=== PATIENT | female | born 2000 | race Hispanic/Latino ===

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

== ENCOUNTER 2020-02-16 05:42 | Inpatient (IN) | payer MEDICAID ==
[~2020-02-16] VITALS: Ht 157.5 cm; Wt 63.5 kg
[2020-02-16] MEDS ORDERED: LACTATED RINGERS 1000ML 1,000 ML IV PRN (06:08)
[2020-02-16] MEDS ORDERED: OXYTOCIN 10 USP UNITS/ML 20 UNIT in LACTATED RINGERS 1000ML 1,000 ML IV SCH (06:15)
[2020-02-16 06:37] LABS: AMPHET/METH SCREEN,URINE NEGATIVE (NEGATIVE); BARBITURATE SCREEN, URINE NEGATIVE (NEGATIVE); BENZODIAZEPINES SCREEN,URINE NEGATIVE (NEGATIVE); CANNABINOID SCREEN,URINE NEGATIVE (NEGATIVE); COCAINE SCREEN,URINE NEGATIVE (NEGATIVE); OPIATE SCREEN,URINE NEGATIVE (NEGATIVE); PHENCYCLIDINE SCREEN,URINE NEGATIVE (NEGATIVE)
[2020-02-16 06:45] LABS: HEMATOCRIT 31.6 % (36-48); MEAN CORPUSCULAR HGB CONC 30.7 g/dL (32.0-36.0); MEAN CORPUSCULAR VOLUME 81.4 fL (80-100); PLATELET COUNT (AUTO) 400 K/uL (130-400); RED BLOOD CELL COUNT(AUTO) 3.88 MIL/uL (4.00-5.50); RED CELL DISTRIBUTION WIDTH 15.9 % (11.0-15.5); WHITE BLOOD COUNT (AUTO) 14.6 K/uL (4.8-10.8)
[2020-02-16 06:46] LABS: APPEARANCE,URINE Clear (CLEAR); BILIRUBIN,URINE Negative (NEGATIVE); COLOR,URINE Yellow (YELLOW); GLUCOSE, URINE (UA) Negative (NEGATIVE); KETONES,URINE Negative (NEGATIVE); LEUKOCYTE ESTERASE ,URINE Moderate (NEGATIVE); NITRATE,URINE Negative (NEGATIVE); OCCULT BLOOD,URINE Large (NEGATIVE); PH,URINE 6.5 (5.0-8.0); PROTEIN,URINE Negative (NEGATIVE)
[2020-02-16] MEDS ORDERED: OXYTOCIN-LR 20 UNITS/1000 ML 1,000 ML IV SCH ×2 (07:00→13:15)
[2020-02-16 07:01] LABS: BACTERIA,URINE Moderate /HPF (None Seen); MUCUS,URINE Rare LPF (None Seen); RBC,URINE 0-1 /HPF (0-1); SQUAMOUS EPITHELIAL CELL,UR Few /HPF (0-2)
--- NOTE | 2020-02-16 09:19 | NUR ---
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 Pt agreeable to interview with mom present. Pt lives with her mother and step father in their home. All utilities in the home are working, reports mother. Pt is on maternity leave from work and is independent, has Medicaid and food stamp assistance, will apply for WIC at or. Pt reports she has basic items including car seat for NB, JASON KEENAN. Pt has not selected a log washer. FOB is Jairo Keenan (2000) [phone]. FOB and pt are not together but he will have involvement with NB after . Due to CORONAVIRUS, only 1 person allowed with pt and pt selected her mother over FOB. Pt reports hx of arrest at 16 and time in [facility]. Pt states she saw a psychiatrist while there and he told her she had signs and symptoms of depression and anxiety, related to her cutting and hx of ideations. Pt denies any suicide attempts or inpt stays. Pt states after release, she went to [address] and never returned. Pt reports she was a heavy daily THC user since 15 until finding out she was in May. Pt reports she continued to use after confirmation until Jul for nausea and appetite, "but it was a lot less than before". Pt also reports that she was taking street Xanax for about 2 weeks prior to confirmation and only took for 3 days. Pt denies use after Oct. Mother confirmed pt's reporting. Pt was negative at delivery and meconium test will be done after or. Sw educated pt on CPS reporting if meconium is positive. Pt and mother voiced understanding. Pt refused resources offered and stated she does not plan to use after delivery. Pt denies hx of abuse, or domestic violence. Kamla nursery nurse aware of above Addendum: 02/16/20 at 1002 by MJ MATA SS Amended: Links added.
[2020-02-16] MEDS ORDERED: PROMETHAZINE HCL 25 MG/ML 1ML AMPULE IM SCH (10:15)
[2020-02-16] MEDS: MEPERIDINE-PF 25 MG/ML SYG IVP SCH ×2 (10:21→10:48)
[2020-02-16] MEDS ORDERED: LIDOCAINE HCL 2% 20ML ONE (11:56)
[2020-02-16] MEDS ORDERED: ACETAMINOPHEN-CODEINE 300/30MG TAB PO PRN (13:15)
[2020-02-16] MEDS ORDERED: DIPH,PERTUSS(ACELL),TET VAC/PF 0.5 ML VIAL IM PRN (13:15)
[2020-02-16] MEDS ORDERED: WITCH HAZEL 1 PAD TP PRN (13:15)
[2020-02-16] MEDS ORDERED: LANOLIN 30GM OINTMENT TP PRN (13:15)
[2020-02-16] MEDS ORDERED: ACETAMINOPHEN 325 MG TAB PO PRN (13:15)
[2020-02-16] MEDS ORDERED: BENZOCAINE/LANOLIN/ALOE VERA 60 ML AEROSOL TP PRN (13:15)
[2020-02-16] MEDS ORDERED: MEASLES/MUMPS/RUBELLA VACCINE, LIVE 0.5 ML/VIAL SQ PRN (13:15)
[2020-02-16] MEDS: IBUPROFEN 600 MG TABLET PO PRN (14:10)
[2020-02-16] MEDS ORDERED: PREN1TAB80 PO (14:37)
[2020-02-16 14:45] VITALS: BP 125/63
[2020-02-16 16:05] VITALS: BP 124/72
[2020-02-16 19:51] VITALS: BP 118/68
[2020-02-16] MEDS: DOCUSATE SODIUM 100 MG CAP PO SCH (21:05)
[2020-02-16 23:15] VITALS: BP 118/81
[2020-02-17 03:12] VITALS: BP 108/74
[2020-02-17 06:48] LABS: HEMATOCRIT 22.9 % (36-48); MEAN CORPUSCULAR HGB CONC 30.6 g/dL (32.0-36.0); MEAN CORPUSCULAR VOLUME 81.8 fL (80-100); RED BLOOD CELL COUNT(AUTO) 2.8 MIL/uL (4.00-5.50); RED CELL DISTRIBUTION WIDTH 15.9 % (11.0-15.5); WHITE BLOOD COUNT (AUTO) 18.9 K/uL (4.8-10.8)
[2020-02-17 07:27] VITALS: BP 111/75
[2020-02-17] MEDS: IBUPROFEN 600 MG TABLET PO PRN (09:04)
[2020-02-17] MEDS: DOCUSATE SODIUM 100 MG CAP PO SCH (09:04)
[2020-02-17 10:10] LABS: HEPATITIS Bs ANTIGEN SCREEN P Negative (Negative)
[2020-02-17 11:27] VITALS: BP 103/67
--- NOTE | 2020-02-17 14:00 | NUR ---
DISCHARGE PT LEFT UNIT VIA WHEELCHAIR, WITH BABY IN ARMS, ACCOMPANIED BY SIGNIFICANT OTHER. DENIED PAIN AND HAD NO COMPLAINTS. BABY STRAPPED IN CAR SEAT. PT AND BABY TRANSPORTED BY PERSONAL VEHICLE.
== END 2020-02-17 14:00 | disposition home or self-care (01) | DRG 560 ==
LOC: LDH 05:42 → WSH 14:29
PROC: 3E0234Z Introduction of Serum, Toxoid and Vaccine into Muscle, Percutaneous Approach (ICD-10-PCS; principal; 2020-02-16)
PROC: 10D07Z6 Extraction of Products of Conception, Vacuum, Via Natural or Artificial Opening (ICD-10-PCS; 2020-02-16)
PROC: 10907ZC Drainage of Amniotic Fluid, Therapeutic from Products of Conception, Via Natural or Artificial Opening (ICD-10-PCS; 2020-02-16)
PROC: 0W8NXZZ Division of Female Perineum, External Approach (ICD-10-PCS; 2020-02-16)
DX: O69.81X0 Labor and delivery complicated by cord around neck, without compression, not applicable or unspecified (principal); Z37.0 Single live birth; Z23 Encounter for immunization; Z3A.40 40 weeks gestation of pregnancy
CPT/HCPCS: 36415; 80305; 81001; 85027; 86592; 86850; 86900; 86901; 87088; 87340; 90715; A4351; A4606; G0378; J2175; J2550; J2590; J3490; J7120

== ENCOUNTER 2020-02-25 10:59 | Emergency (ER) | payer MEDICAID ==
[~2020-02-25 10:59] MED LIST: PREN1TAB80 PO
[2020-02-25] MEDS ORDERED: CEFTRIAXONE SODIUM 2 GM VIAL ONE (11:47)
[2020-02-25] MEDS ORDERED: SODIUM CHLORIDE 0.9% 100 ML IV ONE (11:48)
[2020-02-25] MEDS ORDERED: ACETAMINOPHEN EXTRA STRENGTH 500 MG TABLET ONE (11:48)
[2020-02-25 11:55] LABS: BASOPHILS % (AUTO) 0.3 % (0.0-5.0); HEMATOCRIT 30.9 % (36-48); LYMPHOCYTES % (AUTO) 11.4 % (21.0-51.0); MEAN CORPUSCULAR HEMOGLOBIN 24.9 pg (27.0-33.0); MEAN CORPUSCULAR HGB CONC 30.7 g/dL (32.0-36.0); MEAN CORPUSCULAR VOLUME 81.1 fL (80-100); MONOCYTES % (AUTO) 4.1 % (3.0-13.0); NEUTROPHILS % (AUTO) 82.7 % (40.0-77.0); PLATELET COUNT (AUTO) 593 K/uL (130-400); RED BLOOD CELL COUNT(AUTO) 3.81 MIL/uL (4.00-5.50); RED CELL DISTRIBUTION WIDTH 16.5 % (11.0-15.5); WHITE BLOOD COUNT (AUTO) 13.8 K/uL (4.8-10.8)
[2020-02-25 12:04] LABS: CREATININE 0.6 mg/dL (0.5-1.5); POTASSIUM 3.7 mmol/L (3.5-5.1)
[2020-02-25 12:09] LABS: ALBUMIN 3.4 g/dL (3.5-5.0); BILIRUBIN,DIRECT 0.1 mg/dL (0.0-0.3); BILIRUBIN,TOTAL 0.3 mg/dL (0.2-1.0); TOTAL PROTEIN, SERUM 8.4 g/dL (6.0-8.3)
[2020-02-25 13:13] LABS: APPEARANCE,URINE Cloudy (CLEAR); BILIRUBIN,URINE Negative (NEGATIVE); COLOR,URINE Yellow (YELLOW); GLUCOSE, URINE (UA) Negative (NEGATIVE); KETONES,URINE 15 mg/dL (NEGATIVE); LEUKOCYTE ESTERASE ,URINE Large (NEGATIVE); NITRATE,URINE Negative (NEGATIVE); OCCULT BLOOD,URINE Large (NEGATIVE); PROTEIN,URINE POS 1+ mg/dL (NEGATIVE)
[2020-02-25 13:29] LABS: BACTERIA,URINE Few /HPF (None Seen); RBC,URINE 26-50 /HPF (0-1); WBC,URINE 51-100 /HPF (0-1)
== END 2020-02-25 13:45 | disposition home or self-care (01) ==
LOC: EDH 10:59
DX: O86.4 Pyrexia of unknown origin following delivery (principal); O91.22 Nonpurulent mastitis associated with the puerperium; Z98.890 Other specified postprocedural states
CPT/HCPCS: 36415; 71045; 80048; 80076; 81001; 82550; 83605; 85025; 87040 ×2; 87088; 96374; 99284; J0696

== ENCOUNTER 2021-04-04 19:39 | Emergency (ER) | payer MEDICAID ==
[~2021-04-04] VITALS: Ht 157.5 cm; Wt 51.7 kg
[2021-04-04 19:46] VITALS: BP 111/76
[2021-04-04 20:07] LABS: BASOPHILS % (AUTO) 0.4 % (0.0-5.0); EOSINOPHILS % (AUTO) 0.2 % (0.0-8.0); HEMATOCRIT 39.9 % (36-48); LYMPHOCYTES % (AUTO) 25.9 % (21.0-51.0); MEAN CORPUSCULAR HEMOGLOBIN 27.2 pg (27.0-33.0); MEAN CORPUSCULAR HGB CONC 32.3 g/dL (32.0-36.0); MEAN CORPUSCULAR VOLUME 84.2 fL (80-100); MONOCYTES % (AUTO) 5.2 % (3.0-13.0); NEUTROPHILS % (AUTO) 67.9 % (40.0-77.0); PLATELET COUNT (AUTO) 412 K/uL (130-400); RED BLOOD CELL COUNT(AUTO) 4.74 MIL/uL (4.00-5.50); RED CELL DISTRIBUTION WIDTH 17.5 % (11.0-15.5); WHITE BLOOD COUNT (AUTO) 13.4 K/uL (4.8-10.8)
[2021-04-04 20:45] LABS: APPEARANCE,URINE Cloudy (CLEAR); BILIRUBIN,URINE Negative (NEGATIVE); COLOR,URINE Dark Yellow (YELLOW); GLUCOSE, URINE (UA) Negative (NEGATIVE); KETONES,URINE >=160 mg/dL (NEGATIVE); LEUKOCYTE ESTERASE ,URINE Moderate (NEGATIVE); NITRATE,URINE Negative (NEGATIVE); OCCULT BLOOD,URINE Negative (NEGATIVE); PROTEIN,URINE Trace mg/dL (NEGATIVE)
[2021-04-04 20:56] LABS: BACTERIA,URINE Few /HPF (None Seen)
[2021-04-04 20:57] LABS: MUCUS,URINE Few LPF (None Seen); SQUAMOUS EPITHELIAL CELL,UR Moderate /HPF (0-2)
[2021-04-04 21:25] VITALS: BP 118/77
[2021-04-04] MEDS ORDERED: CEFTRIAXONE SODIUM 500 MG (DOSE 250-750MG) VIAL IM STA (21:26)
[2021-04-04] MEDS ORDERED: CEFTRIAXONE SODIUM 1 GM IVP STA (21:37)
[2021-04-04] MEDS ORDERED: CEPH500B PO (22:09)
== END 2021-04-04 22:23 | disposition home or self-care (01) ==
LOC: EDH 19:39
DX: O23.41 Unspecified infection of urinary tract in pregnancy, first trimester (principal); O20.0 Threatened abortion; Z3A.01 Less than 8 weeks gestation of pregnancy; Z98.890 Other specified postprocedural states; Z79.899 Other long term (current) drug therapy
CPT/HCPCS: 36415; 76801; 81001; 84702; 84703; 85025; 86850; 86900; 86901; 87088; 96374; 99284; J0696

== ENCOUNTER 2021-10-29 19:47 | Observation (INO) | payer MEDICAID ==
[~2021-10-29] VITALS: Ht 157.5 cm; Wt 58.1 kg
[~2021-10-29 19:47] MED LIST changes: +CEPH500B PO
[2021-10-29 19:50] VITALS: BP 124/89
[2021-10-29 20:48] LABS: APPEARANCE,URINE Clear (CLEAR); BILIRUBIN,URINE Negative (NEGATIVE); COLOR,URINE Yellow (YELLOW); GLUCOSE, URINE (UA) Negative (NEGATIVE); KETONES,URINE Negative (NEGATIVE); LEUKOCYTE ESTERASE ,URINE Trace (NEGATIVE); NITRATE,URINE Negative (NEGATIVE); OCCULT BLOOD,URINE Negative (NEGATIVE); PH,URINE 5.5 (5.0-8.0); PROTEIN,URINE Negative (NEGATIVE)
[2021-10-29 20:53] LABS: BACTERIA,URINE Rare /HPF (None Seen); RBC,URINE 0-1 /HPF (0-1); SQUAMOUS EPITHELIAL CELL,UR Rare /HPF (0-2); WBC,URINE 0-1 /HPF (0-1)
[2021-10-29] MEDS ORDERED: LACTATED RINGERS 1000ML IV SCH (21:30)
== END 2021-10-29 21:55 | disposition home or self-care (01) ==
LOC: EDH 19:47 → LDH 19:48
PROVIDERS: ADMIT Internal Medicine; ATTEND Internal Medicine
DX: O26.893 Other specified pregnancy related conditions, third trimester (principal); R10.32 Left lower quadrant pain; Z3A.37 37 weeks gestation of pregnancy; Z87.891 Personal history of nicotine dependence
CPT/HCPCS: 59025; 81001; 96360; G0378

== ENCOUNTER 2022-04-18 16:54 | Emergency (ER) | payer MEDICAID ==
[~2022-04-18] VITALS: Ht 157.5 cm; Wt 46.7 kg
[~2022-04-18 16:54] MED LIST changes: -CEPH500B PO; +DOCU-116 PO; +FERR-82 PO; +IBUP-2070 PO
[2022-04-18 16:55] VITALS: BP 110/76
[2022-04-18 17:24] LABS: APPEARANCE,URINE CLOUDY (CLEAR); BILIRUBIN,URINE NEGATIVE (NEGATIVE); COLOR,URINE YELLOW (YELLOW); GLUCOSE, URINE (UA) NEGATIVE (NEGATIVE); KETONES,URINE NEGATIVE (NEGATIVE); LEUKOCYTE ESTERASE ,URINE MODERATE (NEGATIVE); NITRATE,URINE NEGATIVE (NEGATIVE); OCCULT BLOOD,URINE LARGE (NEGATIVE); PH,URINE 5.5 (5.0-8.0); PROTEIN,URINE TRACE mg/dL (NEGATIVE); UROBILINOGEN,URINE 0.2 mg/dL (0.2-1.0)
[2022-04-18 17:30] LABS: HCG,QUAL RESULT NEGATIVE (NEGATIVE)
[2022-04-18 17:33] LABS: BACTERIA,URINE Few /HPF (None Seen)
[2022-04-18 17:34] LABS: SQUAMOUS EPITHELIAL CELL,UR Few /HPF (0-2)
[2022-04-18 17:35] LABS: MUCUS,URINE Few LPF (None Seen)
[2022-04-18] MEDS ORDERED: ACET-66 PO (18:25)
[2022-04-18] MEDS ORDERED: CEPH500B PO (18:25)
[2022-04-18] MEDS ORDERED: CEFTRIAXONE 1G VIAL IM ONE (18:30)
[2022-04-18] MEDS ORDERED: LIDOCAINE HCL-MPF 1% 2ML VIAL ONE (18:31)
== END 2022-04-18 18:50 | disposition home or self-care (01) ==
LOC: EDH 16:54
DX: N39.0 Urinary tract infection, site not specified (principal); Z20.822 Contact with and (suspected) exposure to COVID-19; Z91.018 Allergy to other foods; Z79.899 Other long term (current) drug therapy; Z90.89 Acquired absence of other organs
CPT/HCPCS: 81001; 81025; 87077; 87088; 87186; 87635; 87804 ×2; 87880; 96372; 99283; C9803; J0696; J3490

== ENCOUNTER 2025-02-22 15:57 | Emergency (ER) | payer BC, MEDICAID ==
[2021-04-04 19:46] VITALS: TEMP 100.3
[~2025-02-22] VITALS: Ht 157.5 cm; Wt 59.0 kg
[~2025-02-22 15:57] MED LIST changes: +ACET-66 PO; +CEPH500B PO
[2025-02-22 16:47] LABS: BASOPHILS # (AUTO) 0.04 K/uL (0.00-0.20); BASOPHILS % (AUTO) 0.3 % (0.0-5.0); EOSINOPHILS # (AUTO) 0.13 K/uL (0.00-0.70); HEMATOCRIT 35.1 % (36-48); IMMATURE GRANULOCYTE ABSOLUTE 0.03 K/uL (0-1); LYMPHOCYTES # (AUTO) 4.3 K/uL (1.0-4.8); LYMPHOCYTES % (AUTO) 33.9 % (21.0-51.0); MEAN CORPUSCULAR HEMOGLOBIN 27.6 pg (27.0-33.0); MEAN CORPUSCULAR HGB CONC 31.9 g/dL (32.0-36.0); MEAN CORPUSCULAR VOLUME 86.5 fL (79-99); MONOCYTES # (AUTO) 0.6 K/uL (0.1-1.0); MONOCYTES % (AUTO) 4.6 % (3.0-13.0); NEUTROPHILS # (AUTO) 7.6 K/uL (1.8-7.7); PLATELET COUNT (AUTO) 365 K/uL (130-400); RED BLOOD CELL COUNT(AUTO) 4.06 MIL/uL (4.00-5.50); RED CELL DISTRIBUTION WIDTH 15.3 % (11.0-15.5); WHITE BLOOD COUNT (AUTO) 12.6 K/uL (4.8-10.8)
[2025-02-22 17:02] LABS: CREATININE 0.5 mg/dL (0.5-1.0)
[2025-02-22 17:15] LABS: APPEARANCE,URINE CLOUDY (CLEAR); BILIRUBIN,URINE NEGATIVE (NEGATIVE); COLOR,URINE LIGHT-YELLOW (YELLOW); GLUCOSE, URINE (UA) NEGATIVE (NEGATIVE); KETONES,URINE NEGATIVE (NEGATIVE); LEUKOCYTE ESTERASE ,URINE 500 Leu/uL (NEGATIVE); NITRATE,URINE NEGATIVE (NEGATIVE); OCCULT BLOOD,URINE NEGATIVE (NEGATIVE); PROTEIN,URINE 10 mg/dL (NEGATIVE); UROBILINOGEN,URINE 0.2 mg/dL (0.2-1.0)
[2025-02-22 17:16] LABS: ADD UA MICROSCOPIC YES
[2025-02-22 17:20] LABS: MUCUS,URINE RARE LPF (None Seen); OTHER CASTS, URINE 1 /LPF (None Seen); SQUAMOUS EPITHELIAL CELL,UR MOD /HPF (0-2); WBC,URINE 26-50 /HPF (0-1)
--- NOTE | 2025-02-22 18:25 | ERN ---
ED Note History of Present Illness Stated Complaint: FAINTING,HEADACHES,TUNNEL VISION Chief Complaint: Syncope Time Seen by MD: 16:02 Time Seen by Midlevel: 16:10 Dictation: 24 old female coming in with complaints of having tunnel vision muffled hearing in syncopal episode while she was at home. Patient states at the time that she passed out she was bending over to fern picker a toy. Allergies: Coded Allergies: tomato (Unverified Allergy, Mild, 11/11/21) upset stomach No Known Drug Allergies (Unverified Allergy, Unknown, 02/16/20) Home Meds Active Scripts Cephalexin Monohydrate (Keflex) 500 Mg Cap, 500 MG PO BID for 7 Days, #14 CAP Prov:ATIF HOPE DITCH RIDER 02/22/25 Acetaminophen (Tylenol) 500 Mg Tab, 500 MG PO Q4PRN, #30 TAB Prov:[employer]IVING HOME DIRECTOR 04/18/22 Cephalexin Monohydrate (Keflex) 500 Mg Cap, 500 MG PO QID for 7 Days, #28 CAP Prov:[employer]ED LIVING HOME DIRECTOR 04/18/22 Reported Medications Docusate Sodium (Colace) 100 Mg Capsule, 100 MG PO BID, CAP 11/13/21 Ferrous Sulfate (Iron) 325 Mg Tablet, 325 MG PO QODAY, TAB 11/13/21 Ibuprofen (Ibuprofen) 600 Mg Tablet, 600 MG PO Q6H PRN for PAIN, TAB 11/13/21 Vits W-Ca,Fe,FA(<1Mg) ( Vitamins) 1 Each Tablet, 1 EACH PO DAILY, TAB 02/16/20 Past Medical History Past Medical History: No Pertinent History Surgical History: Tonsillectomy Family History: Negative Social History: Negative LMP: Jan 03, 2025 : 2 Para: 1 Review of System Dictation Constitutional: Negative for fever,chills, and weight loss Eyes: Negative for injury, pain,redness, and discharge ENT: Negative for injury,pain or swelling Cardiovascular: Negative for chest pain, palpitations, and edema Respiratory: Negative for shortness of breath, cough, and wheezing, Abdomen/GI: Negative for abdominal pain, nausea, vomiting, diarrhea, and c onstipation Back: Negative for injury and pain : Negative for injury, bleeding and discharge MS/Extremity: Negative for injury and deformity Skin: Negative for rash, and discoloration Neuro: Negative for headache, weakness, numbness, tingling, and seizure Psych: Negative for suicide ideation, homicidal ideation, and hallucinations Review of Systems: was completed Initial Vital Sign VS Vital Signs Date Time Temp Pulse Resp B/P (MAP) Pulse Ox O2 Delivery O2 Flow Rate FiO2 02/22/25 16:01 84 16 148/97 100 Room Air 0 02/22/25 18:52 21 02/22/25 19:24 98.8 Physical Exam Dictation General: awake, alert, NAD Head/Face: Normocephalic, atraumatic Eyes: PERRL, EOMI, vision at baseline ENT: oral cavity clear, TMs clear, no signs of infection Neck: Trachea midline, supple, no nuchal rigidity Cardiovascular: RRR, normal S1/S2, No MRGs, no JVD Respiratory: CTAB, no respiratory distress, No rales or wheezes Abdomen: Soft, non-tender, non-distended, normal bowel sounds, no guarding or rebound. Skin: Warm, dry, normal turgor, no rash MS/Extremity: Pulses equal, no cyanosis, neurovascular intact, FROM Neuro: COAx4, GCS 15, strength 5/5, CN 2-12 intact, normal cerebellar exam, normal gait, Psych: Normal behavior, mood, and affect normal Results (Laboratory/Radiology) Laboratory/Radiology Laboratory Tests Test 02/22/25 16:41 02/22/25 16:48 White Blood Count 12.6 K/uL (4.8-10.8) H Red Blood Count 4.06 MIL/uL (4.00-5.50) Hemoglobin 11.2 g/dL (12.0-16.0) L Hematocrit 35.1 % (36-48) L Mean Corpuscular Volume 86.5 fL (79-99) Mean Corpuscular Hemoglobin 27.6 pg (27.0-33.0) Mean Corpuscular Hemoglobin Concent 31.9 g/dL (32.0-36.0) L Red Cell Distribution Width 15.3 % (11.0-15.5) Platelet Count 365 K/uL (130-400) Mean Platelet Volume 10.4 fL (7.5-10.5) Immature Granulocyte % (Auto) 0.2 % (0-1) Neutrophils (%) (Auto) 60.0 % (40.0-77.0) Lymphocytes (%) (Auto) 33.9 % (21.0-51.0) Monocytes (%) (Auto) 4.6 % (3.0-13.0) Eosinophils (%) (Auto) 1.0 % (0.0-8.0) Basophils (%) (Auto) 0.3 % (0.0-5.0) Neutrophils # (Auto) 7.6 K/uL (1.8-7.7) Lymphocytes # (Auto) 4.3 K/uL (1.0-4.8) Monocytes # (Auto) 0.6 K/uL (0.1-1.0) Eosinophils # (Auto) 0.13 K/uL (0.00-0.70) Basophils # (Auto) 0.04 K/uL (0.00-0.20) Absolute Immature Granulocyte (auto 0.03 K/uL (0-1) Nucleated Red Blood Cells 0.0 % (0.0-0.19) Sodium Level 141 mmol/L (136-145) Potassium Level 4.0 mmol/L (3.5-5.1) Chloride Level 106 mmol/L (101-111) Carbon Dioxide Level 28 mmol/L (21-32) Blood Urea Nitrogen 10 mg/dL (7-18) Creatinine 0.5 mg/dL (0.5-1.0) Glomerular Filtration Rate Calc 133 mL/min (>90) Random Glucose 105 mg/dL (70-105) Total Calcium 8.8 mg/dL (8.5-10.1) Human Chorionic Gonadotropin, Quant 0 mIU/mL (0-5) Urine Color LIGHT-YELLOW (YELLOW) Urine Appearance CLOUDY (CLEAR) H Urine pH 6.0 (5.0-8.0) Urine Specific [place] 1.027 (1.001-1.031) Urine Protein 10 mg/dL (NEGATIVE) H Urine Glucose (UA) NEGATIVE mg/dL (NEGATIVE) Urine Ketones NEGATIVE mg/dL (NEGATIVE) Urine Occult Blood NEGATIVE (NEGATIVE) Urine Nitrate NEGATIVE (NEGATIVE) Urine Bilirubin NEGATIVE mg/dL (NEGATIVE) Urine Urobilinogen 0.2 mg/dL (0.2-1.0) Urine Leukocyte Esterase 500 Fam/uL (NEGATIVE) H Urine RBC 2-5 /HPF (0-1) H Urine WBC 26-50 /HPF (0-1) H Urine Squamous Epithelial Cells MOD /HPF (0-2) Urine Bacteria None /HPF (None Seen) Urine Other Casts 1 /LPF (None Seen) Labs Reviewed?: Yes ED Course ED Course Orders Procedure Category Date Status Time Cbc With Differential LAB 02/22/25 Complete 16:32 Basic Metabolic Panel LAB 02/22/25 Complete 16:32 Hcg,Quantitative LAB 02/22/25 Complete 16:32 Urinalysis Profile LAB 02/22/25 Complete 16:32 Culture Urine SHELDON 02/22/25 In Process 17:16 0.9%Nacl 1000ml (Ns PHA 02/22/25 Complete 1000ml) 17:35 12 Lead Ekg Tracing- EKG 02/22/25 Logged Technical 18:28 Orthostatic Vital CPOE 02/22/25 Transmitted Signs 18:28 Ceftriaxone 1g Vial PHA 02/22/25 Complete (Rocephine 1g Inj) 19:31 Acetaminophen 500mg PHA 02/22/25 Complete Tab (Tylenol 500mg T 20:05 Current Medications Medications (Trade) Dose Ordered Sig/Tyrone Route PRN Reason Start Time Stop Time Status Last Admin Dose Admin Acetaminophen (TYLenol 500MG TAB) 1,000 mg ONCE STAT PO 02/22/25 20:05 02/22/25 20:06 DC 02/22/25 20:16 Ceftriaxone Sodium (ROCEphine 1G INJ) 1 gm ONCE IVPB 02/22/25 19:31 02/22/25 20:25 DC 02/22/25 19:59 Sodium Chloride 1,000 ml @ 1,000 mls/hr Q1H STAT IV 02/22/25 17:35 02/22/25 18:34 DC 02/22/25 18:46 Vital Signs Date Time Temp Pulse Resp B/P (MAP) Pulse Ox O2 Delivery O2 Flow Rate FiO2 02/22/25 20:24 98.6 62 16 112/76 100 Room Air* 0 02/22/25 19:24 98.8 61 16 108/73 100 Room Air* 0 02/22/25 18:56 80 16 112/81 97 Room Air* 0 02/22/25 18:54 70 16 119/73 97 Room Air* 0 02/22/25 18:52 65 16 101/63 100 Room Air* 0 02/22/25 16:01 84 16 148/97 100 Room Air 0 Medical Decision Making MDM MDM: 24 old female coming in with complaints of having tunnel vision muffled hearing in syncopal episode while she was at home. Patient states at the time that she passed out she was bending over to fern picker a toy. Blood work unremarkable other than urinary tract infection. Fluids Rocephin given in the emergency room. Discussed with the patient possibly this being vertigo and/or vasovagal. Educated patient stay hydrated, come back to the hospital if symptoms worsen otherwise follow up with PCP in 1-2 days. Patient verbalized understanding, answered all questions. Differential diagnosis: Dehydration, anemia, vasovagal Rationale: Tests considered and ordered secondary to shared decision making include: Previous outside records reviewed: Old ER visits. Risk of complication and/or morbidity or mortality of patient management: None Medications-Per medication reconciliation Need for hospitalization: Patient does not meet criteria for hospitalization. Need for emergency major/minor surgery: No There are no social concerns with this patient. Prescription drug management Prescriptions will include symptomatic care Patient's prior external medical records from other ER visits were reviewed by me as indicated. Prior testing and results from previous visits were reviewed. Prior tests were taken into account with medical decision making and resource utilization, independent historian/historians were used to obtain complete medical history. I independently interpreted the test that were performed, results were reviewed by me and considered findings on radiology if ordered. Medical management and examination interpretation discussions were had by me with other qualified healthcare professionals as indicated for the patient's care. DX & DISP Disposition: Discharge Departure Impression: Primary Impression: Urinary tract infection Condition: Stable Scripts Cephalexin Monohydrate (Keflex) 500 Mg Cap 500 MG PO BID for 7 Days, #14 CAP Prov: ATIF HOPE DITCH RIDER 02/22/25 Additional Instructions: stay Hydrated, take antibiotics as prescribed. Follow up with your primary doctor in 1-2 days. Return to the hospital if symptoms worsen. Referrals: SELF,REFERRAL (PCP) Time of Disposition: 19:33 I have reviewed the case, and I agree with, Diagnosis and Plan ATIF HOPE NP February 22, 2025 18:25 DIRK GRIFFITH DO February 23, 2025 07:24
[2025-02-22] MEDS: 0.9%NACL 1000ML 1,000 ML IV STA (18:46)
[2025-02-22] MEDS ORDERED: CEPH500B PO (19:33)
[2025-02-22] MEDS: cefTRIAXone 1G VIAL IVPB SCH (19:59)
[2025-02-22] MEDS: acetaMINOPHEN 500 MG TABLET PO STA (20:14)
[2025-02-22 20:24] VITALS: BP 112/76; PULSE 62; RESP 16; TEMP 98.6; O2SAT 100
--- NOTE | 2025-02-23 07:51 | EKG ---
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
== END 2025-02-22 20:25 | disposition home or self-care (01) ==
LOC: EDH 15:57
DX: N39.0 Urinary tract infection, site not specified (principal); R10.2 Pelvic and perineal pain; Z90.89 Acquired absence of other organs; Z79.899 Other long term (current) drug therapy
CPT/HCPCS: 99284; 96365; 80048; 84702; 85025; 87086; 81001; 36415; 93005; J0696